=== PATIENT | female | born 1945 | race Caucasian/White ===

== ENCOUNTER → 2016-10-15 | Outpatient (CLI) | payer OTHER, MEDICARE ==
--- NOTE | 2016-10-15 17:56 | MA ---
CORRECTED SPELLING OF PATIENT NAME Screening Digital Mammogram with Digital Breast Tomosynthesis Clinical Indications: Routine screening. Technique: Standard cephalocaudal projections are obtained. Digital breast tomosynthesis was performed in the MLO projection with reconstruction at 1.0 mm slice thickness and composite MLO views reconstructed. This examination is processed by the CAD computer aided detection system. Comparison: September 17, 2015; July 24, 2014; and studies dating back to January 18, 2008. Breast density: C; The breasts are heterogeneously dense, which may obscure small masses. Findings: CAD was reviewed. There are no new masses, new clusters of microcalcifications, or significant axillary lymphadenopathy. Impression: Negative mammogram. BI-RADS 1. Recommendation: Routine screening mammogram is recommended in one year. Dense mammographic pattern limits the sensitivity of mammography in this patient. If there is a clinically palpable abnormality, recommend additional imaging with ultrasound if clinically indicated. [facility] will send a result letter to the patient. Negative mammography should not preclude additional workup of a clinically suspicious finding. The patient's information is entered into a reminder system with a target due date for her next mammogram. ROSALINA
--- NOTE | 2016-10-15 19:42 | DX ---
CORRECTED SPELLING OF PATIENT NAME Lumbar Spine, Two Views on October 15, 2016 Indication: Lumbar spine fusion one year ago. Follow up. Technique: Upright AP and lateral views. Findings: The interspinous fixator devices at L2-L3 and L3-L4, 6 mm anterolisthesis of L2 on L3, moderate degenerative disk disease at L2-L3, and severe degenerative disk disease at L3-L4, L4-L5, and L5-S1 are all unchanged. No compression fracture. Impression: No change since June 2016. [facility]
== END ==
LOC: FIMAGING 14:29
PROVIDERS: ATTEND Orthopaedic Surgery Orthopaedic Surgery of the Spine
DX: Z09 Encounter for follow-up examination after completed treatment for conditions other than malignant neoplasm (principal); Z98.1 Arthrodesis status; M96.1 Postlaminectomy syndrome, not elsewhere classified
CPT/HCPCS: G0202